=== PATIENT | female | born 1940 | race Caucasian/White ===

== ENCOUNTER 2021-08-27 21:14 | Inpatient (IN) | payer SELFPAY ==
[2021-08-27] MEDS ORDERED: SODIUM CHLORIDE 0.9% 1,000 ML IV STA (21:27)
[2021-08-27] MEDS ORDERED: SODIUM CHLORIDE 0.9% 500 ML 500 ML IV STA (21:27)
[2021-08-27] MEDS ORDERED: MORPHINE SULFATE 4 MG/ML SYRINGE IV STA (21:27)
--- NOTE | 2021-08-27 21:28 | ED ---
Fall HPI - General Stated Complaint: Fall, Hip Pain Time Seen by Provider: 08/27/21 21:22 Source: RN notes reviewed, old records reviewed, Caregiver Mode of arrival: EMS Limitations: no limitations - History of Present Illness Initial Comments: This is an 80-year-old female to the ER for evaluation. Patient is from [place] here visiting family. Patient presents today for evaluation of fall fall with right hip pain. Patient was unable to get up unable to get up stand or walk. Patient has no other complaints or injury aside from right hip pain. Did not hit her head no loss of consciousness fall was mechanical in nature. No blood thinners. No other significant medical history. MD Complaint: fall -: minutes(s) Fall From: standing When Fall Occurred: 1 hour [employer] Fall Witnessed: yes, by family Place Fall Occurred: home Loss of Consciousness: none Prolonged Down Time?: no Symptoms Prior to Fall: none Location - Extremities: Right: Thigh Severity: severe Severity scale (1-10): 10 Quality: sharp Context: tripped/slipped Associated Symptoms: denies - Related Data Home Medications Medication Instructions Recorded Confirmed Ascorbic Acid [Vitamin C] 500 mg PO DAILY 08/27/21 08/27/21 Calcium Carbonate [Calcium] 600 mg PO DAILY 08/27/21 08/27/21 Cholecalciferol [Vitamin D3 (25 25 mcg PO DAILY 08/27/21 08/27/21 Mcg = 1000 Iu)] Escitalopram Unknown Dose 1 tab PO HS 08/27/21 08/27/21 Levothyroxine Sodium [Synthroid] 62.5 mcg PO HS 08/27/21 08/27/21 Allergies Allergy/AdvReac Type Severity Reaction Status Date / Time No Known Allergies Allergy Verified 08/27/21 22:13 Review of Systems ROS Statement: Those systems with pertinent positive or pertinent negative responses have been documented in the HPI. ROS Other: All systems not noted in ROS Statement are negative. 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 Absent: scleral icterus, conjunctival injection, periorbital swelling ENT exam: Present: normal exam, mucous membranes moist Neck exam: Present: normal inspection. Absent: tenderness, meningismus, lymphadenopathy Respiratory exam: Present: normal lung sounds bilaterally. Absent: respiratory distress, wheezes, rales, rhonchi, stridor Cardiovascular Exam: Present: regular rate, normal rhythm, normal heart sounds. Absent: systolic murmur, diastolic murmur, rubs, gallop, clicks GI/Abdominal exam: Present: soft, normal bowel sounds. Absent: distended, tenderness, guarding, rebound, rigid Extremities exam: Present: normal inspection, full ROM, normal capillary refill. Absent: tenderness, pedal edema, joint swelling, calf tenderness Back exam: Present: normal inspection Neurological exam: Present: alert, oriented X3, CN II-XII intact Psychiatric exam: Present: normal affect, normal mood Skin exam: Present: warm, dry, intact, normal color. Absent: rash Course Vital Signs 08/27/21 08/27/21 21:26 22:09 Temperature 98.2 F Pulse Rate 84 82 Respiratory 28 H 16 Rate Blood Pressure 135/62 129/68 O2 Sat by Pulse 96 97 Oximetry - Reevaluation(s) Reevaluation #1: 08/27/21 22:11 Medical record is reviewed Reevaluation #2: 08/27/21 22:11 Patient has adequate current pain controlled Reevaluation #3: 08/27/21 22:11 Patient informed of results and questions answered - Consultations Consultation #1: Spoke with orthopedics on-call who agreed to admit the patient Medical Decision Making - Medical Decision Making 80-year-old female DF for evaluation with severe right hip pain. 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 Patient will be admitted for orthopedic evaluation management - Lab Data Result diagrams: 08/27/21 21:37 08/27/21 21:37 Lab Results 08/27/21 08/27/21 08/27/21 Range/Units 21:37 21:37 21:37 WBC 7.8 (3.8-10.6) k/uL RBC 3.90 (3.80-5.40) m/uL Hgb 12.1 (11.4-16.0) gm/dL Hct 37.0 (34.0-46.0) % MCV 94.8 (80.0-100.0) fL MCH 30.9 (25.0-35.0) pg MCHC 32.6 (31.0-37.0) g/dL RDW 13.8 (11.5-15.5) % Plt Count 192 (150-450) k/uL MPV 7.5 Neutrophils % 75 % Lymphocytes % 17 % Monocytes % 5 % Eosinophils % 1 % Basophils % 0 % Neutrophils # 5.9 (1.3-7.7) k/uL Lymphocytes # 1.3 (1.0-4.8) k/uL Monocytes # 0.4 (0-1.0) k/uL Eosinophils # 0.1 (0-0.7) k/uL Basophils # 0.0 (0-0.2) k/uL PT 10.9 (9.0-12.0) sec INR 1.0 (<1.2) APTT 22.1 (22.0-30.0) sec Sodium 136 L (137-145) mmol/L Potassium 4.2 (3.5-5.1) mmol/L Chloride 107 (98-107) mmol/L Carbon Dioxide 22 (22-30) mmol/L Anion Gap 7 mmol/L BUN 19 H (7-17) mg/dL Creatinine 0.91 (0.52-1.04) mg/dL Est GFR (CKD-EPI)AfAm 68 (>60 ml/min/1.73 sqM) Est GFR (CKD-EPI)NonAf 59 (>60 ml/min/1.73 sqM) Glucose 131 H (74-99) mg/dL Plasma Lactic Acid Siddhartha (0.7-2.0) mmol/L Calcium 8.5 (8.4-10.2) mg/dL Phosphorus 3.2 (2.5-4.5) mg/dL Magnesium 1.9 (1.6-2.3) mg/dL Total Bilirubin 1.0 (0.2-1.3) mg/dL AST 24 (14-36) U/L ALT 14 (4-34) U/L Alkaline Phosphatase 55 (38-126) U/L Troponin I (0.000-0.034) ng/mL Total Protein 6.5 (6.3-8.2) g/dL Albumin 3.6 (3.5-5.0) g/dL 08/27/21 08/27/21 Range/Units 21:37 21:37 WBC (3.8-10.6) k/uL RBC (3.80-5.40) m/uL Hgb (11.4-16.0) gm/dL Hct (34.0-46.0) % MCV (80.0-100.0) fL MCH (25.0-35.0) pg MCHC (31.0-37.0) g/dL RDW (11.5-15.5) % Plt Count (150-450) k/uL MPV Neutrophils % % Lymphocytes % % Monocytes % % Eosinophils % % Basophils % % Neutrophils # (1.3-7.7) k/uL Lymphocytes # (1.0-4.8) k/uL Monocytes # (0-1.0) k/uL Eosinophils # (0-0.7) k/uL Basophils # (0-0.2) k/uL PT (9.0-12.0) sec INR (<1.2) APTT (22.0-30.0) sec Sodium (137-145) mmol/L Potassium (3.5-5.1) mmol/L Chloride (98-107) mmol/L Carbon Dioxide (22-30) mmol/L Anion Gap mmol/L BUN (7-17) mg/dL Creatinine (0.52-1.04) mg/dL Est GFR (CKD-EPI)AfAm (>60 ml/min/1.73 sqM) Est GFR (CKD-EPI)NonAf (>60 ml/min/1.73 sqM) Glucose (74-99) mg/dL Plasma Lactic Acid Siddhartha 2.7 H* (0.7-2.0) mmol/L Calcium (8.4-10.2) mg/dL Phosphorus (2.5-4.5) mg/dL Magnesium (1.6-2.3) mg/dL Total Bilirubin (0.2-1.3) mg/dL AST (14-36) U/L ALT (4-34) U/L Alkaline Phosphatase (38-126) U/L Troponin I <0.012 (0.000-0.034) ng/mL Total Protein (6.3-8.2) g/dL Albumin (3.5-5.0) g/dL - EKG Data -: EKG Interpreted by Me (EKG is sinus rhythm 84 SC 178 QRS 85 QTC 398) - Radiology Data Radiology results: report reviewed (Chest x-rays negative for acute disease and a x-ray right hip is positive for fracture), image reviewed Disposition Clinical Impression: Fall, Closed right hip fracture Disposition: ADMITTED IP TO THIS [facility] Condition: Good Is patient prescribed a controlled substance at d/c from ED?: No Referrals: Nonstaff,Physician [Primary Care Provider] - 1-2 days
[2021-08-27 21:46] LABS: Basophils % (A) 0 %; Eosinophils # (A) 0.1 k/uL (0-0.7); Eosinophils % (A) 1 %; HGB 12.1 gm/dL (11.4-16.0); Lymphocytes # (A) 1.3 k/uL (1.0-4.8); Lymphocytes % (A) 17 %; MCH 30.9 pg (25.0-35.0); MCHC 32.6 g/dL (31.0-37.0); MCV 94.8 fL (80.0-100.0); Mean Platelet Volume 7.5; Monocytes # (A) 0.4 k/uL (0-1.0); Monocytes % (A) 5 %; Neutrophils # (A) 5.9 k/uL (1.3-7.7); Neutrophils % (A) 75 %; Platelet Count 192 k/uL (150-450); RDW 13.8 % (11.5-15.5); WBC 7.8 k/uL (3.8-10.6)
--- NOTE | 2021-08-27 21:54 | XR ---
EXAMINATION TYPE: XR Hip RT and AP Pelvis DATE OF EXAM: 08/27/2021 9:51 PM INDICATION: Patient age:Female; 80 years old; Reason for study: fall; PHH. COMPARISON: None. TECHNIQUE: The right hip was examined in the frontal and lateral projections and a AP pelvis. FINDINGS: There is an acute fracture of the right femoral neck with shortening. There is varus deform ity of the right hip. Stool seen within the rectum. The left femur and remainder of the osseous struc tures appear intact. Osteophyte formation of the hips with joint space narrowing. IMPRESSION: 1. Acute right femoral neck fracture with shortening and varus deformity. 2. Moderate osteoarthrosis changes of the hips.
[2021-08-27 21:56] LABS: Albumin 3.6 g/dL (3.5-5.0); Calcium 8.5 mg/dL (8.4-10.2); Magnesium 1.9 mg/dL (1.6-2.3); Phosphorus 3.2 mg/dL (2.5-4.5); Potassium 4.2 mmol/L (3.5-5.1); Total Protein 6.5 g/dL (6.3-8.2)
--- NOTE | 2021-08-27 21:56 | XR ---
EXAMINATION TYPE: XR chest 1V DATE OF EXAM: 08/27/2021 9:51 PM COMPARISON: None TECHNIQUE: XR chest 1V Frontal view of the chest. CLINICAL INDICATION:Female, 80 years old with history of fall; FINDINGS: Lungs/Pleura: Streaky atelectasis changes are seen throughout the lungs with cavitary like lesion see n within the right upper lobe measuring up to 2.8 x 1.7 cm. Interstitial opacities are seen within th e right lung. Pulmonary vascularity: Unremarkable. Heart/mediastinum: Cardiomediastinal silhouette is unremarkable. Musculoskeletal: No acute osseous pathology. IMPRESSION: Right upper lobe cavitary lesion with associated predominantly right-sided interstitial opacities. In fectious and neoplastic processes remain in the differential. Consider further workup with CT of the chest.
[2021-08-27 22:05] LABS: Partial Thromboplastin Time 22.1 sec (22.0-30.0); Prothrombin Time 10.9 sec (9.0-12.0)
[2021-08-27] MEDS ORDERED: LORazepam 2 MG/ML INJ IV PRN (22:24)
[2021-08-27] MEDS ORDERED: NALOXONE 0.4 MG/ML 1 ML VIAL IV PRN (22:24)
[2021-08-27] MEDS ORDERED: ONDANSETRON 4 MG/2 ML VIAL IVP PRN (22:24)
[2021-08-27] MEDS: SODIUM CHLORIDE 0.9% 1,000 ML IV SCH (23:29)
[2021-08-28 00:06] LABS: Appearance,Urine Cloudy (Clear); Bacteria,Urine Many /hpf; Bilirubin,Urine Negative (Negative); Blood,Urine Negative (Negative); Color,Urine Yellow; Glucose,Urine (UA) Negative (Negative); Hyaline Casts,Urine 2 /lpf (0-2); Ketones,Urine 1+ (Negative); Leukocyte Esterase,Urine Small (Negative); Mucus,Urine Moderate /hpf; Nitrite,Urine Positive (Negative); PH, Urine 5.5 (5.0-8.0); Protein,Urine Trace (Negative); RBC,Urine 16 /hpf (0-5); Specific Gravity,Urine 1.023 (1.001-1.035); Squamous Epithelial Cell,Urine 30 /hpf (0-4); Urobilinogen,Urine <2.0 mg/dL (<2.0); WBC,Urine 28 /hpf (0-5)
[2021-08-28] MEDS: MORPHINE SULFATE 4 MG/ML SYRINGE IV PRN ×4 (01:03→23:09)
--- NOTE | 2021-08-28 02:35 | P.CONS ---
History of Present Illness - Reason for Consult Consult date: 08/28/21 - History of Present Illness The patient is an 80-year-old female with a PMH of dementia, hypothyroidism, osteoporosis, and depression who was brought into the emergency room after a fall. History obtained from the son-in-law via telephone as patient is a poor historian due to underlying history of dementia. As per the son-in-law, the patient is visiting from [place] and tripped on their dog earlier tonight, fall on the ground on her right side at around 9 PM. He reports witnessing the episode with no loss of consciousness reported. No head trauma was reported by family. The patient was unable to stand up following the episode, at which time EMS was activated. The son-in-law notes that the patient is normally very active and does not use any assistive devices. There were reportedly raking leaves in the backyard all evening today. There were no reports of exertional chest discomfort or shortness of breath and the patient is able to climb stairs without difficulty. The patient lives with her in [place] and is fully independent in all ADLs, despite gradually worsening Alzheimer's dementia. Son- in-law reports that the patient is often not able to remember where she is. No prior history of fractures. At the time of interview, the patient reported right hip discomfort, unable to quantify. She denied any additional complaints. She denied experiencing chest discomfort, shortness of breath, fever, chills, cough, nausea, vomiting, abdominal, diarrhea. Pelvis x-ray in the emergency room revealed an acute right femoral neck fracture with moderate osteoarthritis of the hips. EKG revealed sinus rhythm at [address] depression noted in leads V4 to V6. No prior EKGs available for comparison. Chest x-ray revealed a right upper lobe cavitary lesion with a right-sided interstitial opacities, with infectious versus neoplastic process within the differential. Laboratory evaluation revealed lactic acid 2.7, and an abnormal UA with troponin less than 0.012. Review of systems: Pertinent positives and negatives as discussed in HPI, a complete review of systems was performed and all other systems are negative. Physical examination: General: non toxic, no distress, appears at stated age, normal weight Derm: no unusual rashes/lesions no unusual ecchymoses, warm, dry Head: atraumatic, normocephalic, symmetric Eyes: EOMI, no lid lag, anicteric sclera, pupils equal round reactive to light ENT: Nose and ears atraumatic, no thrush, no pharyngeal erythema Neck: No thyromegaly, no cervical lymphadenopathy, trachea midline, supple Mouth: no lip lesion, mucus membranes moist Cardiovascular: S1S2 reg, no murmur, positive posterior tibial pulse bilateral, no edema, capillary refill less than 2 seconds Lungs: CTA bilateral, no rhonchi, no rales , no accessory muscle use Abdominal: soft, nontender to palpation, no guarding, no appreciable organomegaly, normal bowel sounds Ext: no gross muscle atrophy, muscle strength 5 out of 5 in all extremities except right lower extremity due to pain, right hip pain elicited with passive ROM, no contractures Neuro: CN II-XI grossly intact, light touch intact all 4 extremities, finger to nose within normal limits, Psych: Alert, oriented only to self, not oriented to place or time Assessment/plan Right upper lobe lung cavitary lesion with opacities -Obtain CT chest -Patient denying fever, cough, chest pain, shortness of breath Abnormal EKG -Consult cardiology for preoperative clearance Acute traumatic right hip fracture -Defer management including pain control to the primary surgery service Chronic conditions: Hypothyroidism -Continue with home meds Lactic acidosis -IV fluids -Monitor for resolution We appreciate this opportunity to be involved in this patient's care. We will follow the patient with you. For any further questions, please not hesitate to contact the sound inpatient team. Past Medical History Smoking Status: Never smoker Past Alcohol Use History: None Reported Past Drug Use History: None Reported - Past Family History Father Family Medical History: Unable to Obtain Additional Family Medical History / Comment(s): patient only oriented to self, unable to obtain history Medications and Allergies Home Medications Medication Instructions Recorded Confirmed Type Ascorbic Acid [Vitamin C] 500 mg PO DAILY 08/27/21 08/27/21 History Calcium Carbonate [Calcium] 600 mg PO DAILY 08/27/21 08/27/21 History Cholecalciferol [Vitamin D3 (25 25 mcg PO DAILY 08/27/21 08/27/21 History Mcg = 1000 Iu)] Escitalopram Unknown Dose 1 tab PO HS 08/27/21 08/27/21 History Levothyroxine Sodium [Synthroid] 62.5 mcg PO HS 08/27/21 08/27/21 History Allergies Allergy/AdvReac Type Severity Reaction Status Date / Time No Known Allergies Allergy Verified 08/27/21 22:13 Physical Exam Vitals: Vital Signs Temp Pulse Resp BP Pulse Ox 08/28/21 01:00 18 08/27/21 23:36 98.1 F 87 18 127/78 98 08/27/21 22:09 82 16 129/68 97 08/27/21 21:26 98.2 F 84 28 H 135/62 96 Intake and Output 08/27/21 08/27/21 08/28/21 14:59 22:59 06:59 Other: Voiding Method Indwelling Catheter Weight 60.1 kg Results CBC & Chem 7: 08/27/21 21:37 08/27/21 21:37 Labs: Abnormal Lab Results - Last 24 Hours (Table) 08/27/21 08/27/21 08/27/21 Range/Units 21:37 21:37 23:03 Sodium 136 L (137-145) mmol/L BUN 19 H (7-17) mg/dL Glucose 131 H (74-99) mg/dL Plasma Lactic Acid Siddhartha 2.7 H* (0.7-2.0) mmol/L Urine Appearance Cloudy H (Clear) Urine Protein Trace H (Negative) Urine Ketones 1+ H (Negative) Urine Nitrite Positive H (Negative) Ur Leukocyte Esterase Small H (Negative) Urine RBC 16 H (0-5) /hpf Urine WBC 28 H (0-5) /hpf Ur Squamous Epith Cells 30 H (0-4) /hpf Urine Bacteria Many H (None) /hpf Urine Mucus Moderate H (None) /hpf
[2021-08-28] MEDS ORDERED: RX INFO: IV CONTRAST WAS GIVEN 1 EACH MISC MISCELLANE PRN (02:36)
[2021-08-28 05:12] LABS: Basophils % (A) 0 %; Eosinophils % (A) 0 %; HCT 36.7 % (34.0-46.0); HGB 11.7 gm/dL (11.4-16.0); Lymphocytes # (A) 0.7 k/uL (1.0-4.8); Lymphocytes % (A) 7 %; MCH 30.5 pg (25.0-35.0); MCHC 31.8 g/dL (31.0-37.0); MCV 95.8 fL (80.0-100.0); Mean Platelet Volume 7.4; Monocytes # (A) 0.3 k/uL (0-1.0); Monocytes % (A) 3 %; Neutrophils % (A) 89 %; Platelet Count 164 k/uL (150-450); RBC 3.83 m/uL (3.80-5.40); RDW 13.4 % (11.5-15.5); WBC 10.1 k/uL (3.8-10.6)
[2021-08-28 05:26] LABS: Albumin 3.5 g/dL (3.5-5.0); Potassium 4.3 mmol/L (3.5-5.1); Total Bilirubin 1.5 mg/dL (0.2-1.3); Total Protein 6.2 g/dL (6.3-8.2)
[2021-08-28] MEDS: SODIUM CHLORIDE 0.9% 1,000 ML IV SCH ×3 (06:47→22:58)
[2021-08-28] MEDS: PANTOPRAZOLE 40 MG/10 ML VIAL IV SCH (07:36)
--- NOTE | 2021-08-28 07:47 | P.HPOR ---
History of Present Illness H&P Date: 08/28/21 The patient is a very pleasant 80-year-old female who sustained a ground-level fall yesterday when she tripped over her dog. She is visiting from [place]. She had immediate pain and an inability to ambulate and was brought to the emergency department where x-rays showed a displaced femoral neck fracture. She was admitted under my care. This morning she is complaining of isolated right hip pain. There is limited ability to obtain history from her given her Alzheimer's dementia. Past Medical History Smoking Status: Never smoker Past Alcohol Use History: None Reported Past Drug Use History: None Reported - Past Family History Father Family Medical History: Unable to Obtain Additional Family Medical History / Comment(s): patient only oriented to self, unable to obtain history Medications and Allergies Home Medications Medication Instructions Recorded Confirmed Type Ascorbic Acid [Vitamin C] 500 mg PO DAILY 08/27/21 08/27/21 History Calcium Carbonate [Calcium] 600 mg PO DAILY 08/27/21 08/27/21 History Cholecalciferol [Vitamin D3 (25 25 mcg PO DAILY 08/27/21 08/27/21 History Mcg = 1000 Iu)] Escitalopram Unknown Dose 1 tab PO HS 08/27/21 08/27/21 History Levothyroxine Sodium [Synthroid] 62.5 mcg PO HS 08/27/21 08/27/21 History Allergies Allergy/AdvReac Type Severity Reaction Status Date / Time No Known Allergies Allergy Verified 08/27/21 22:13 Physical Examination The patient is resting comfortably in bed and is in no apparent distress. She is alert and able to answer questions, but is somewhat confused and has a baseline of dementia. Her head is normocephalic and atraumatic. She answers nonlabored breathing with symmetric chest expansion. Her abdomen is nonobese and nontender. Examination of both upper extremities reveal no obvious deformities and no tenderness to palpation. Left lower extremities without deformity and is nontender. A focused exam of the right lower extremity was conducted. On inspection the limited shortened and externally rotated. There are no overlying skin lesions or scars. There is pain with any attempted range of motion of the hip. There is no tenderness to the thigh, knee, tibia, or ankle. She is able to actively plantarflex and dorsiflex her ankle and her toes. She has a palpable dorsalis pedis pulse. Results X-rays of the pelvis and right hip show displaced subcapital femoral neck fracture - Labs Labs: Abnormal Lab Results - Last 24 Hours (Table) 08/27/21 08/27/21 08/27/21 Range/Units 21:37 21:37 23:03 Neutrophils # (1.3-7.7) k/uL Lymphocytes # (1.0-4.8) k/uL Sodium 136 L (137-145) mmol/L BUN 19 H (7-17) mg/dL Glucose 131 H (74-99) mg/dL Plasma Lactic Acid Siddhartha 2.7 H* (0.7-2.0) mmol/L Calcium (8.4-10.2) mg/dL Total Bilirubin (0.2-1.3) mg/dL Total Protein (6.3-8.2) g/dL Urine Appearance Cloudy H (Clear) Urine Protein Trace H (Negative) Urine Ketones 1+ H (Negative) Urine Nitrite Positive H (Negative) Ur Leukocyte Esterase Small H (Negative) Urine RBC 16 H (0-5) /hpf Urine WBC 28 H (0-5) /hpf Ur Squamous Epith Cells 30 H (0-4) /hpf Urine Bacteria Many H (None) /hpf Urine Mucus Moderate H (None) /hpf 08/28/21 08/28/21 Range/Units 04:30 04:30 Neutrophils # 9.0 H (1.3-7.7) k/uL Lymphocytes # 0.7 L (1.0-4.8) k/uL Sodium 133 L (137-145) mmol/L BUN (7-17) mg/dL Glucose 131 H (74-99) mg/dL Plasma Lactic Acid Siddhartha (0.7-2.0) mmol/L Calcium 8.0 L (8.4-10.2) mg/dL Total Bilirubin 1.5 H (0.2-1.3) mg/dL Total Protein 6.2 L (6.3-8.2) g/dL Urine Appearance (Clear) Urine Protein (Negative) Urine Ketones (Negative) Urine Nitrite (Negative) Ur Leukocyte Esterase (Negative) Urine RBC (0-5) /hpf Urine WBC (0-5) /hpf Ur Squamous Epith Cells (0-4) /hpf Urine Bacteria (None) /hpf Urine Mucus (None) /hpf H & H 08/27/21 08/28/21 Range/Units 21:37 04:30 Hgb 12.1 11.7 (11.4-16.0) gm/dL Hct 37.0 36.7 (34.0-46.0) % Coagulation 08/27/21 Range/Units 21:37 INR 1.0 (<1.2) Result Diagrams: 08/28/21 04:30 08/28/21 04:30 Assessment and Plan Assessment: Displaced right subcapital femoral neck fracture Alzheimer's dementia Plan: The patient will need operative fixation of her right hip fracture with a cemented hemiarthroplasty. She has not been cleared by internal medicine and they've requested a computed tomography scan of her chest to further evaluateat the scene on her chest x-ray and a cardiology consult. We will plan on surgery tomorrow morning if she is cleared. She is remain strictly nonweightbearing on her right leg and should remain bedrest. Time with Patient: Greater than 30
--- NOTE | 2021-08-28 10:47 | P.PN ---
Subjective Progress Note Date: 08/28/21 Principal diagnosis: Femoral neck fracture of the right hip Patient was seen and examined. No acute events overnight. Patient reports well-controlled pain in her right hip. She is pleasantly confused. Case discussed with nursing, family aware of right upper lobe cavitary lesion and get regular CT surveillance in [place]. Objective - Vital Signs Vital signs: Vital Signs Temp 98.7 F 08/28/21 07:45 Pulse 88 08/28/21 07:45 Resp 16 08/28/21 07:45 BP 109/58 08/28/21 07:45 Pulse Ox 91 L 08/28/21 07:45 Intake & Output 08/27/21 08/28/21 08/28/21 18:59 06:59 18:59 Output Total 200 Balance -200 Weight 60.1 kg Output: Urine 200 Other: Voiding Method Indwelling Catheter Indwelling Catheter - Exam General: [non toxic], [no distress], [appears at stated age] Derm: [warm], [dry] Head: [atraumatic], [normocephalic], [symmetric] Eyes: [EOMI], [no lid lag], [anicteric sclera] Mouth: [no lip lesion], [mucus membranes moist] Cardiovascular: [S1S2 reg], [no murmur], [positive posterior tibial pulse bilateral], Lungs: [CTA bilateral], [no rhonchi, no rales] , [no accessory muscle use] Ext: [no gross muscle atrophy], [no edema], [limited range of motion of the right hip due to pain] Neuro: [no focal neuro deficits] Psych: [Alert and oriented x 1-2] - Labs CBC & Chem 7: 08/28/21 04:30 08/28/21 04:30 Labs: Abnormal Lab Results - Last 24 Hours (Table) 08/27/21 08/27/21 08/27/21 Range/Units 21:37 21:37 23:03 Neutrophils # (1.3-7.7) k/uL Lymphocytes # (1.0-4.8) k/uL Sodium 136 L (137-145) mmol/L BUN 19 H (7-17) mg/dL Glucose 131 H (74-99) mg/dL Plasma Lactic Acid Siddhartha 2.7 H* (0.7-2.0) mmol/L Calcium (8.4-10.2) mg/dL Total Bilirubin (0.2-1.3) mg/dL Total Protein (6.3-8.2) g/dL Urine Appearance Cloudy H (Clear) Urine Protein Trace H (Negative) Urine Ketones 1+ H (Negative) Urine Nitrite Positive H (Negative) Ur Leukocyte Esterase Small H (Negative) Urine RBC 16 H (0-5) /hpf Urine WBC 28 H (0-5) /hpf Ur Squamous Epith Cells 30 H (0-4) /hpf Urine Bacteria Many H (None) /hpf Urine Mucus Moderate H (None) /hpf 08/28/21 08/28/21 Range/Units 04:30 04:30 Neutrophils # 9.0 H (1.3-7.7) k/uL Lymphocytes # 0.7 L (1.0-4.8) k/uL Sodium 133 L (137-145) mmol/L BUN (7-17) mg/dL Glucose 131 H (74-99) mg/dL Plasma Lactic Acid Siddhartha (0.7-2.0) mmol/L Calcium 8.0 L (8.4-10.2) mg/dL Total Bilirubin 1.5 H (0.2-1.3) mg/dL Total Protein 6.2 L (6.3-8.2) g/dL Urine Appearance (Clear) Urine Protein (Negative) Urine Ketones (Negative) Urine Nitrite (Negative) Ur Leukocyte Esterase (Negative) Urine RBC (0-5) /hpf Urine WBC (0-5) /hpf Ur Squamous Epith Cells (0-4) /hpf Urine Bacteria (None) /hpf Urine Mucus (None) /hpf Assessment and Plan Assessment: Right upper lobe lung cavitary lesion with opacities -CT chest cancelled -As per nursing, patient's family aware of right upper lobe cavitary lesion and undergoes regular surveillance in [place] -Patient denying fever, cough, chest pain, shortness of breath UTI -Started on Rocephin IV on 08/28 -Follow Urine culture Hyponatremia -Likely due to dehydration -Continue IV hydration -Repeat BMP tomorrow morning. Abnormal EKG -Consult cardiology for preoperative clearance -Echocardiogram ordered Acute traumatic right hip fracture -Defer management including pain control to the primary surgery service -Plans for OR tomorrow Chronic conditions: Hypothyroidism -Continue with home meds Resolved: Lactic acidosis
--- NOTE | 2021-08-28 11:36 | P.CRDCN ---
History of Present Illness Consult date: 08/28/21 Chief complaint: Reason for the consult abnormal EKG History of present illness: The patient is an 80-year-old female patient with no significant cardiovascular history and no history of coronary artery disease or congestive heart failure or any cardiac arrhythmia and never seen by a education diagnostician in the past. We requested to see the patient for a preoperative cardiac assessment before noncardiac surgery. The patient somewhat is a poor historian and the history was taken from her family who where her bedside. Apparently the patient fell at home and she landed on the right side in the morning. She developed right hip fracture and currently she is in process of having surgery. Orthopedic service is on the case. We consulted to see the patient mainly because of an EKG was performed and showed sinus rhythm with significant baseline artifact and possible diffuse nonspecific ST and T wave abnormalities. Apparently the patient is very active physically and she has not been experiencing any symptoms of any chest pain or chest discomfort or any shortness of breath or dizziness or lightheadedness and no feeling of heart racing or fluttering or presyncope or syncope. According to her family she is able to go 2 flights of stairs without being symptomatic. No history of coronary artery disease. No history of heart failure nor history of cardiac arrhythmia. When she was seen this morning she is in process of having an echocardiogram for further risk stratification which we will follow-up on. Hemodynamically she remains a stable. When she was examined she was not having any unstable angina or any cardiac arrhythmia and s he was not in any overt congestive heart failure. Past Medical History Past Medical History: Dementia, Thyroid Disorder History of Any Multi-Drug Resistant Organisms: None Reported Smoking Status: Never smoker Past Alcohol Use History: None Reported Past Drug Use History: None Reported - Past Family History Father Family Medical History: Unable to Obtain Additional Family Medical History / Comment(s): patient only oriented to self, unable to obtain history Medications and Allergies Home Medications Medication Instructions Recorded Confirmed Type Ascorbic Acid [Vitamin C] 500 mg PO DAILY 08/27/21 08/27/21 History Calcium Carbonate [Calcium] 600 mg PO DAILY 08/27/21 08/27/21 History Cholecalciferol [Vitamin D3 (25 25 mcg PO DAILY 08/27/21 08/27/21 History Mcg = 1000 Iu)] Escitalopram Unknown Dose 1 tab PO HS 08/27/21 08/27/21 History Levothyroxine Sodium [Synthroid] 62.5 mcg PO HS 08/27/21 08/27/21 History Allergies Allergy/AdvReac Type Severity Reaction Status Date / Time No Known Allergies Allergy Verified 08/27/21 22:13 Physical Exam Vitals: Vital Signs Temp Pulse Pulse Resp BP BP Pulse Ox 08/28/21 07:45 98.7 F 88 16 109/58 91 L 08/28/21 07:36 88 16 08/28/21 02:10 98.5 F 90 18 143/73 94 L 08/28/21 01:00 18 08/27/21 23:36 98.1 F 87 18 127/78 98 08/27/21 22:09 82 16 129/68 97 08/27/21 21:26 98.2 F 84 28 H 135/62 96 Intake and Output 08/27/21 08/28/21 08/28/21 22:59 06:59 14:59 Output Total 200 Balance -200 Output: Urine 200 Other: Voiding Method Indwelling Catheter Indwelling Catheter Weight 60.1 kg - Constitutional General appearance: no acute distress - Respiratory Respiratory: bilateral: diminished - Cardiovascular Rhythm: regular Heart sounds: normal: S1, S2 Abnormal Heart Sounds: systolic murmur Results 08/28/21 04:30 08/28/21 04:30 Cardiac Enzymes 08/27/21 08/27/21 08/28/21 Range/Units 21:37 21:37 04:30 AST 24 25 (14-36) U/L Troponin I <0.012 (0.000-0.034) ng/mL Coagulation 08/27/21 Range/Units 21:37 PT 10.9 (9.0-12.0) sec APTT 22.1 (22.0-30.0) sec CBC 08/27/21 08/28/21 Range/Units 21:37 04:30 WBC 7.8 10.1 (3.8-10.6) k/uL RBC 3.90 3.83 (3.80-5.40) m/uL Hgb 12.1 11.7 (11.4-16.0) gm/dL Hct 37.0 36.7 (34.0-46.0) % Plt Count 192 164 (150-450) k/uL Comprehensive Metabolic Panel 08/27/21 08/28/21 Range/Units 21:37 04:30 Sodium 136 L 133 L (137-145) mmol/L Potassium 4.2 4.3 (3.5-5.1) mmol/L Chloride 107 105 (98-107) mmol/L Carbon Dioxide 22 23 (22-30) mmol/L BUN 19 H 17 (7-17) mg/dL Creatinine 0.91 0.79 (0.52-1.04) mg/dL Glucose 131 H 131 H (74-99) mg/dL Calcium 8.5 8.0 L (8.4-10.2) mg/dL AST 24 25 (14-36) U/L ALT 14 15 (4-34) U/L Alkaline Phosphatase 55 43 (38-126) U/L Total Protein 6.5 6.2 L (6.3-8.2) g/dL Albumin 3.6 3.5 (3.5-5.0) g/dL Current Medications Generic Name Dose Route Start Last Admin Trade Name Freq PRN Reason Stop Dose Admin Sodium Chloride 1,000 mls @ 130 mls/hr 08/27/21 22:30 08/28/21 06:47 Saline 0.9% IV 130 mls/hr .Q7H42M CIRO Administration Ceftriaxone Sodium 1 gm/ 50 mls @ 100 mls/hr 08/28/21 10:45 08/28/21 11:17 Sodium Chloride IVPB 100 mls/hr Q24HR CIRO Administration Protocol Lorazepam 0.5 mg 08/27/21 22:24 Lorazepam 2 Mg/Ml Inj IV Q6HR PRN Anxiety Miscellaneous Information 1 each 08/28/21 02:36 Rx Info: Iv Contrast Was Given 1 Each Misc MISCELLANE 08/30/21 02:36 DAILY PRN Per Protocol Morphine Sulfate 4 mg 08/27/21 22:24 08/28/21 05:51 Morphine Sulfate 4 Mg/Ml Syringe IV 4 mg Q4HR PRN Administration Severe Pain Naloxone HCl 0.2 mg 08/27/21 22:24 Naloxone 0.4 Mg/Ml 1 Ml Vial IV Q2M PRN Opioid Reversal Ondansetron HCl 4 mg 08/27/21 22:24 Ondansetron 4 Mg/2 Ml Vial IVP Q8HR PRN Nausea And Vomiting Pantoprazole Sodium 40 mg 08/28/21 09:00 08/28/21 07:36 Pantoprazole 40 Mg/10 Ml Vial IV 40 mg DAILY CIRO Administration Intake and Output 08/27/21 08/28/21 08/28/21 22:59 06:59 14:59 Output Total 200 Balance -200 Output: Urine 200 Other: Voiding Method Indwelling Catheter Indwelling Catheter Weight 60.1 kg 08/28/21 04:30 08/28/21 04:30 Assessment and Plan Assessment: Assessment #1 status post fall with a right hip fracture #2 thyroid disorder #3 underlying dementia Plan #1 acute coronary event was ruled out #2 follow-up on the echocardiogram which was performed earlier #3 repeat the EKG to obtain a better quality EKG #4 further recommendation to follow
--- NOTE | 2021-08-28 15:19 | CA ---
Transthoracic Echo Report Name: Oanh Benitez Age: 80 Gender: F : 1940 Exam Date: 08/28/2021 10:23 Exam Location: [facility] Ht (in): 66 Wt (lb): 132 Ordering Physician: Hailey Denny MD Attending/Referring Phys: Hospitality Recruiter Kassie Goodwin, ANTIONETTE Procedure CPT: Indications: abnormal echo, cardio clearance for surgery Cardiac Hx: Technical Quality: Fair Contrast 1: Total Dose (mL): Contrast 2: Total Dose (mL): MEASUREMENTS (Male / Female) Normal Values 2D ECHO LV Diastolic Diameter PLAX 4.1 cm 4.2 - 5.9 / 3.9 - 5.3 cm LV Systolic Diameter PLAX 2.4 cm IVS Diastolic Thickness 1.0 cm 0.6 - 1.0 / 0.6 - 0.9 cm LVPW Diastolic Thickness 0.9 cm 0.6 - 1.0 / 0.6 - 0.9 cm LV Relative Wall Thickness 0.5 RV Internal Dim ED PLAX 2.4 cm LA Systolic Diameter LX 2.3 cm 3.0 - 4.0 / 2.7 - 3.8 cm M-MODE Aortic Root Diameter MM 3.5 cm MV E Point Septal Separation 0.6 cm AV Cusp Separation MM 2.0 cm DOPPLER AV Peak Velocity 125.0 cm/s AV Peak Gradient 6.2 mmHg MV Area PHT 4.6 cm??? Mitral E Point Velocity 80.4 cm/s Mitral A Point Velocity 99.3 cm/s Mitral E to A Ratio 0.8 MV Deceleration Time 166.3 ms TR Peak Velocity 300.9 cm/s TR Peak Gradient 36.2 mmHg Right Ventricular Systolic Press 40.5 mmHg FINDINGS Left Ventricle Left ventricular ejection fraction is estimated at 55-60 %. Borderline left ventricular hypertrophy. Left ventricular cavity size normal. No obvious regional wall motion abnormalities. Right Ventricle Normal right ventricular size. Mild pulmonary hypertension. Right Atrium Normal right atrial size. Left Atrium Normal left atrial size. No evidence for an atrial septal defect. Mitral Valve Mitral valve thickened. Mitral annular calcification. Aortic Valve Trileaflet aortic valve. No aortic valve stenosis or regurgitation. Tricuspid Valve Mild tricuspid regurgitation. Pulmonic Valve Trace to mild pulmonic regurgitation. Pericardium No pericardial effusion. Aorta Normal size aortic root and proximal ascending aorta. CONCLUSIONS Normal LFEF. Previewed by: Dr. Kvng Rose MD (Electronically Signed) Final Date: 28 Aug 2021 15:18
[2021-08-28] MEDS: ESCITALOPRAM 10 MG TAB PO SCH ×2 (20:31→20:32)
[2021-08-28] MEDS: LEVOTHYROXINE 125 MCG TAB PO SCH (20:31)
[2021-08-28] MEDS ORDERED: ESCITALOPRAM PO SCH ×2 (21:00)
[2021-08-29] MEDS: SODIUM CHLORIDE 0.9% 1,000 ML IV SCH ×4 (06:15→21:15)
[2021-08-29] MEDS: CALCIUM CARB-VIT D 500 MG-5 MCG TAB PO SCH (06:52)
[2021-08-29] MEDS: ASCORBIC ACID 500 MG TAB PO SCH (06:52)
[2021-08-29] MEDS: CHOLECALCIFEROL 25 MCG (1000 IU) TABLET PO SCH (06:52)
[2021-08-29] MEDS ORDERED: IV FLUID CONTINUATION 1,000 ML IV ONE (07:11)
[2021-08-29] MEDS: PANTOPRAZOLE 40 MG/10 ML VIAL IV SCH (07:17)
[2021-08-29] MEDS ORDERED: TRANEXAMIC ACID IN NACL,ISO-OS 1,000 MG/100 ML BAG IRRIGATION ONE (07:58)
[2021-08-29] MEDS ORDERED: ONDANSETRON 4 MG/2 ML VIAL ONE (08:05)
[2021-08-29] MEDS ORDERED: PROPOFOL 10 MG/ML 20 ML VIAL IV ONE (08:05)
[2021-08-29] MEDS ORDERED: DEXAMETHASONE SOD PHOSPHATE 10 MG/ML 1 ML VIAL ONE (08:05)
[2021-08-29] MEDS ORDERED: KETOROLAC 15 MG/ML 1 ML VIAL ONE (08:05)
[2021-08-29] MEDS ORDERED: SUCCINYLCHOLINE CHLORIDE 100 MG/5 ML SYR IV ONE (08:05)
[2021-08-29] MEDS ORDERED: LIDOCAINE 2% INJ 20 MG/ML (2 ML VIAL) ONE (08:05)
[2021-08-29] MEDS ORDERED: fentaNYL (PF) 50 MCG/ML 2 ML AMP ONE (08:05)
[2021-08-29] MEDS ORDERED: TRANEXAMIC ACID IN NACL,ISO-OS 1,000 MG/100 ML BAG ONE (08:05)
[2021-08-29] MEDS ORDERED: ROCURONIUM 10 MG/ML (5 ML VIAL) IV ONE (08:05)
[2021-08-29] MEDS ORDERED: TRANEXAMIC ACID IN NACL,ISO-OS 1,000 MG in SALINE 1 100ML.BAG IVPB ONE ×2 (08:15→10:00)
[2021-08-29] MEDS ORDERED: SODIUM CHLORIDE 0.9% 100 ML with ceFAZolin 2,000 MG IV ONE ×2 (08:17)
[2021-08-29] MEDS ORDERED: EPINEPHrine 2 MG in SODIUM CHLORIDE 0.9% 200 ML IV ONE (09:21)
[2021-08-29] MEDS ORDERED: LACTATED RINGERS 1,000 ML IV ONE (09:57)
[2021-08-29] MEDS ORDERED: NALOXONE 0.4 MG/ML 1 ML VIAL IV PRN (10:30)
[2021-08-29] MEDS ORDERED: MAGNESIUM HYDROXIDE 2,400 MG/10 ML CUP PO PRN (10:30)
[2021-08-29] MEDS ORDERED: HYDROmorphone 0.5 MG/0.5 ML SYRINGE IVP PRN ×3 (10:30)
[2021-08-29] MEDS ORDERED: ONDANSETRON 4 MG/2 ML VIAL IVP PRN (10:30)
--- NOTE | 2021-08-29 10:37 | P.OP ---
Date of Procedure: 08/29/21 Preoperative Diagnosis: 1. Displaced right femoral neck fracture 2. Alzheimer's dementia Postoperative Diagnosis: Same Procedure(s) Performed: Right direct anterior hip hemiarthroplasty Implants: [place] accolade C size #4 standard offset femoral stem Bipolar femoral head 44 mm outer diameter, 28 mm inner diameter, +0 neck Anesthesia: RONIT Surgeon: Yuriy Villanueva Reheater Helper #1: Aicha Amaya Estimated Blood Loss (ml): 100 IV fluids (ml): 1,200 Pathology: other (femoral head to pathology) Condition: stable Disposition: PACU Indications for Procedure: I met with the patient and their family preoperatively to discuss their injury and treatment options. They have an intra-capsular, femoral hip fracture and my recommendation was to perform a cemented hemiarthroplasty given her history of dementia to facilitate early mobilization and reduce her risks from a total hip replacement, particularly dislocation. We discussed the potential risks and complications of this surgical procedure including but certainly not limited to risks from anesthesia, superficial infection, deep infection, dislocation, intraoperative fracture, postoperative fracture, damage to local blood vessels or nerves, limp, progression of hip arthritis, limb length discrepancy, symptomatic hardware, need for further surgery including conversion to total hip arthroplasty, DVT, PE, acute coronary event, pressure ulcers, urinary tract infection, failure to thrive, an inability to regain preinjury level of function, and possibly . The patient and their family understand these potential complications and also awknowledge that other less common complications are possible. They provided both their verbal and written consent to go forward with operative fixation of their hip fracture with cemented hip hemiarthroplasty. Operative Findings: Displaced subcapital femoral neck fracture with acute hemarthrosis Description of Procedure: The patient was identified in the preoperative holding area and the correct hip was marked with my initials. I reviewed the procedure and consent with the patient. All of their questions were answered. The patient was then brought back into the operating room by anesthesia. While on the [facility] anesthesia was administered by the anesthesia team. Preoperative antibiotics and tranexamic acid were also given. After the patient was under anesthesia I examined their ankles to determine their preoperative leg length discrepancy. The skin over the anterior aspect of the hip was shaved to remove hair over the site of planned incision. Both feet and ankles were padded with webril and boots for the [place] were applied. The patient was then carefully transferred onto the [place] table. A perineal post was immediately placed. The arms were placed on arm holders and were well-padded. Both boots were secured to the spars on the [place] table. The patient was positioned so that the pelvis was centered over the post. Nonsterile drapes were applied. A timeout was performed identifying the correct patient, operative extremity, and procedure. At this point fluoroscopy was brought in to take preoperative images of the pelvis and operative hip. Using the standing AP pelvis from the office as a template, a comparable image was obtained with fluoroscopy. A metallic bar was used to create a bi-ischial line for use as a reference to leg length adjustments during the procedure. Global offset was also measured on both the operative and nonoperative leg. Fluoroscopy was then brought out and a pre-scrub using a chlorhexidine scrub brush was performed. The operative limb was then prepped and draped in the standard sterile fashion. An anterior longitudinal incision was made lateral and distal to the ASIS. The skin and subcutaneous tissues were incised sharply. The underlying tensor fascia was identified and incised in its midportion. The fascia was dissected free from the underlying muscle and the muscle belly was retracted. A blunt tipped cobra retractor was placed over the superior neck under the muscle fibers of the gluteus minimus. The deep enveloping fascia of the tensor was incised. The anterior leash of vessels were then identified and cauterized. The fascia between the rectus and the capsule was then incised and the pre-capsular fat was excised. A second Cobra was placed inferior to the neck. The interval between the rectus and iliocapsularis and the hip capsule was developed and a retractor was placed carefully over the anterior rim of the acetabulum. A T-shaped anterior capsulotomy was performed. A hemarthrosis consistent with a femoral neck fracture was identified. The superior capsular leaflet was left in place in the inferior capsular flap was excised. The Cobra retractors were placed intracapsularly. A displaced femoral neck fracture was then identified. We then made a femoral neck osteotomy according to preoperative and intraoperative templating and confirmed the level of the osteotomy using fluoroscopic imaging. The femoral head was removed, passed off to the back table, and sized. The superior capsular flap was excised. On inspection of the acetabulum there were minimal degenerative changes with intact cartilage. Attention was then turned to the femur. The remnant dorsal lateral capsule was excised. The short external rotators were visible and protected. A bone hook was used to confirm appropriate translation of the trochanter away from the acetabulum. The leg was then extended and adducted and the bone hook was used to elevate the femur for broaching. A box osteotome and blunt tipped canal sound was then utilized to gain access to the femoral canal. We then sequentially broached the femur in appropriate anteversion until torsional stability was achieved and the implant was felt to have reached the appropriate size to allow trialing. The neck cut was brought flush to the trial broach with a calcar planar. A trial neck and head were then placed onto the broach and the hip was atraumatically reduced under direct visualization. External rotation to 90 was performed to assess stability. Fluoroscopy was brought in. An AP and lateral fluoroscopic image of the proximal femur was obtained to assess position and fill of the trial broach. An AP of the pelvis was then obtained and matched to the preoperative image taken. A bi-ischial bar was then placed and measurements were taken to assess changes in length and offset. The hip was then carefully dislocated, the proximal femur was exposed, and the trial implants were removed. The proximal femur was then prepared for cementing. The canal was thoroughly irrigated with pulsatile lavage to remove blood and marrow contents. A cement restrictor was placed to a depth just distal to the tip of the final implant. Epinephrine-soaked gauze was then packed into the proximal femur. 2 bags of cement with antibiotics were then mixed using a centrifuge and placed into a cement gun. Anesthesia was notified that cementing was about to commence to make sure the patient was appropriately ventilated and hydrated. Once the cement had reached appropriate consistency, the cement gun was used to fill the canal in a retrograde fashion starting at the restrictor. Cement was then pressurized into the canal with a blue tipped tung nut grower. The stem was then carefully introduced into the cement taking care to guide the implant into appropriate version. The stem was held in position until the cement had fully set. All extra cement was removed while the cement was hardening. The trunnion was cleansed and the final head was tapped into place to engage the Brown taper. The acetabulum was irrigated and visualized to be free of debris. The hip was carefully reduced. Stability was checked clinically with external rotation to 90 and there was no evidence of instability. Final fluoroscopic images were taken. The wound was then thoroughly irrigated and soaked with a dilute Betadine rinse for 3 minutes. 3 L of sterile saline was irrigated through the wound using pulsatile lavage. Local anesthetic cocktail was injected into the soft tissues around the surgical field. A deep drain was placed. The wound was then closed in layers. A sterile dressing was placed over the surgical incision and drain site. The drapes were taken down and the patient was carefully transferred off of the [place] table. Following removal of the boots the leg lengths felt acceptable. The patient was then taken to recovery room having tolerated the procedure well. Aicha Amaya PA-C was required as a skilled car rental sales assistant for patient positioning, surgical exposure, retraction, placement of implants, and closure of the surgical wound. PLAN: The patient can weight-bear as tolerated on the operative extremity. 2 doses of postoperative antibiotics. DVT prophylaxis with aspirin 81 mg twice a day based on preoperative risk stratification. Physical therapy for gait traini ng. Discontinue drain postoperative day #1 if output is less than 100 mL per shift.
--- NOTE | 2021-08-29 10:38 | XR ---
Right hip fluoroscopy. Intraoperative fluoroscopy of a right total hip replacement. 18 seconds of fluoroscopy was provided. 5 spot films were obtained. The final spot film demonstrates a total right hip prosthesis in near bry tomic alignment.
[2021-08-29] MEDS: MORPHINE SULFATE 4 MG/ML SYRINGE IV PRN ×3 (14:24→23:37)
[2021-08-29] MEDS: LEVOTHYROXINE 125 MCG TAB PO SCH (20:29)
[2021-08-29] MEDS: SENNOSIDES-DOCUSATE SODIUM 1 EACH TAB PO SCH (20:29)
[2021-08-29] MEDS: ESCITALOPRAM 10 MG TAB PO SCH (20:30)
[2021-08-29] MEDS: ASPIRIN 81 MG PO SCH (20:30)
[2021-08-30] MEDS: SODIUM CHLORIDE 0.9% 1,000 ML IV SCH ×5 (01:58→19:59)
[2021-08-30] MEDS: MORPHINE SULFATE 4 MG/ML SYRINGE IV PRN (04:41)
[2021-08-30] MEDS: ASPIRIN 81 MG PO SCH ×2 (08:45→19:31)
[2021-08-30] MEDS: ASCORBIC ACID 500 MG TAB PO SCH (08:45)
[2021-08-30] MEDS: traMADol 50 MG TAB PO PRN ×3 (08:45→23:45)
[2021-08-30] MEDS: CHOLECALCIFEROL 25 MCG (1000 IU) TABLET PO SCH (08:45)
[2021-08-30] MEDS: CALCIUM CARB-VIT D 500 MG-5 MCG TAB PO SCH (08:45)
--- NOTE | 2021-08-30 08:50 | P.PN ---
Subjective Progress Note Date: 08/30/21 This is a 80-year-old female who is status post right direct anterior hip hemiarthroplasty. This is postoperative day #1 and patient is seen and evaluated at bedside today. Family is present at bedside today and states that Oanh has been confused and pulled out her IV and Hemovac drain. Objective - Vital Signs Vital signs: Vital Signs Temp 98.2 F 08/30/21 07:36 Pulse 72 08/30/21 07:36 Resp 18 08/30/21 07:36 BP 103/67 08/30/21 07:36 Pulse Ox 97 08/30/21 07:36 Intake & Output 08/29/21 08/30/21 08/30/21 18:59 06:59 18:59 Intake Total 1391 Output Total 540 200 Balance 851 -200 Weight 60.1 kg Intake: IV 1101 Intake, IV Titration 290 Amount Sodium Chloride 0.9% 1, 240 000 ml @ 130 mls/hr IV . Q7H42M CIRO Rx#:[id number] cefTRIAXone 1 gm In 50 Sodium Chloride 0.9% 50 ml @ 100 mls/hr IVPB Q24HR CIRO Rx#:[id number] Output: Drainage 70 Right Medial Hip 70 Urine 420 200 Estimated Blood Loss 50 Other: Voiding Method Indwelling Catheter Indwelling Catheter - Exam Vital signs are stable. Patient is in no acute distress and is alert but confused. Calf is soft and nontender to palpation. Dressing is clean, dry, and intact. Patient has full foot and ankle motion without pain or difficulty. Sensation intact. Neurovascular status and circulatory status are intact. - Labs CBC & Chem 7: 08/28/21 04:30 08/28/21 04:30 Labs: Microbiology - Last 24 Hours (Table) 08/27/21 23:03 Urine Culture - Preliminary Urine,Catheterized Gram Neg Bacilli Assessment and Plan (1) S/P hip hemiarthroplasty Current Visit: Yes Status: Acute Code(s): Z96.649 - PRESENCE OF UNSPECIFIED ARTIFICIAL HIP JOINT SNOMED Code(s): 092540781 (2) Closed right hip fracture Current Visit: Yes Status: Acute Code(s): S72.001A - FRACTURE OF UNSP PART OF NECK OF RIGHT FEMUR, INIT SNOMED Code(s): 258394780 (3) Fall Current Visit: Yes Status: Acute Code(s): W19.XXXA - UNSPECIFIED FALL, INITIAL ENCOUNTER SNOMED Code(s): 3195346 Plan: Continue routine postop care and pain control. Continue anticoagulation with aspirin 81 mg twice a day. Weightbearing as tolerated with a walker. Leave dressing in place for 7 days. Appreciate input from medicine. Physical therapy today. Anticipate discharge in the next 24-48 hours.
[2021-08-30 09:42] LABS: Basophils # (A) 0.01 X 10*3/uL (0.00-0.10); Basophils % (A) 0.1 %; Eosinophils # (A) 0.03 X 10*3/uL (0.04-0.35); Eosinophils % (A) 0.4 %; HCT 29.9 % (37.2-46.3); HGB 9.4 g/dL (12.0-15.0); Immature Grans, Automated 0.5 %; Lymphocytes # (A) 0.66 X 10*3/uL (0.90-5.00); Lymphocytes % (A) 7.8 %; MCH 30.6 pg (27.0-32.0); MCHC 31.4 g/dL (32.0-37.0); MCV 97.4 fL (80.0-97.0); Mean Platelet Volume 10.6 fL (9.5-12.2); Monocytes # (A) 0.59 X 10*3/uL (0.20-1.00); NRBC Per 100 WBC 0 /100 WBCS (0.0-0.0); Neutrophils # (A) 7.15 X 10*3/uL (1.80-7.70); Neutrophils % (A) 84.2 %; Platelet Count 131 X 10*3/uL (140-440); RBC 3.07 X 10*6/uL (4.10-5.20); RDW 13.4 % (11.5-14.5); WBC 8.48 X 10*3/uL (4.50-10.00)
--- NOTE | 2021-08-30 10:06 | P.PN ---
Subjective Progress Note Date: 08/30/21 Hospital course: Patient is a very pleasant 80-year-old female with a past medical history of advanced dementia, hypothyroidism, and osteoporosis. She presented to the emergency department on 08/28/21 status post trip and fall. Patient was seen and fully evaluated in the emergency department. She was found to have an acute right femoral neck fracture with shortening and varus deformity along with moderate osteoarthrosis changes of the hips. Chest x-ray then completed revealing right upper lobe cavitary lesion. CBC and CMP completed unremarkable. Troponin negative at less than 0.012. Urinalysis contaminated, but concerning for infection with 28 WBCs. She was started on IV antibiotic Rocephin. Initial lactate was elevated at 2.7 with repeat of 1.0. Patient was admitted to orthopedic surgery team and we were consulted for medical clearance and continued medical management throughout patient's hospitalization. EKG was completed revealing normal sinus rhythm at 80 bpm. echocardiogram also completed revealing a preserved EF of 55-60% with no significant valvular abnormalities. Patient underwent right hip hemiarthroplasty on 08/29/[address] Villanueva. Physical exam: Patient seen and fully evaluated at bedside this morning. Patient's son and her were at bedside. Patient's condition stable. Patient currently denies having any complaints. RN reports patient had increased confusion overnight and ripped out IV. At this time oral medications to be administered an IV to be replaced. Vital signs reviewed and stable. General: Nontoxic, no distress and appears stated age. Thin and frail. Derm: Skin warm and dry, normal coloration for ethnicity. Dressing clean, dry, and intact to right lateral hip/thigh with no signs of bleeding or drainage from surgical site. Head: Atraumatic, normocephalic and symmetric. Eyes: EOMs intact, no lid lag, and anicteric sclera Mouth: no lip lesions, mucus membranes moist Cardiovascular: regular rate and rhythm with normal S1S2, no murmur, positive posterior tibial pulses bilaterally, and cap refill < 2 seconds. Lungs: Respirations even, regular, and unlabored on room air. Lungs CTA bilaterally, no rhonchi, no rales, no wheezing, and no accessory muscle usage. Abdominal: soft, nontender to palpation, no guarding, no appreciable organomegaly Ext:. No gross muscle atrophy, no edema, no contractures. Sensation and movement intact. Neuro: Speech clear, face symmetrical and CN II-XII grossly intact with no noted focal neuro deficits Psych: Alert and oriented to person only. Patient pleasantly confused but follows directions and reorients easily. Assessment and Plan of Care: Acute postoperative blood loss anemia, expected finding Status post right hip hemiarthroplasty on 08/29/21 secondary to acute traumatic right hip fracture -Management per primary admitting orthopedic surgery team including DVT prophylaxis, pain management, weightbearing, and PT/OT. -Patient currently on DVT prophylaxis with aspirin -Postoperative hemoglobin 9.4 down from previous 11.7. Expected postoperative finding. Continue to monitor with repeat hemoglobin tomorrow morning. E. coli UTI -Continue IV antibiotic Rocephin -Bladder management Right upper lobe lung cavitary lesion -Patient's son and at bedside reports this is a known finding and patient undergoes CT scans every 3 months in [place] to monitor/follow closely. They report last computed tomography scan less than 2 months ago and declined taking a repeat scan at this time. Advanced dementia -Continue to provide safe and supportive care and redirection as needed. Hypothyroidism -Continue daily medication regimen with levothyroxine 62.5 g daily Thank you for allowing us to participate in the care of this pleasant patient. Do not hesitate to contact us with questions. Someone can be reached from the [facility] hospitalist group all hours of the day at [phone] or via [employer]. I reviewed the documentation as provided by the TRACY above, who is the original author of this note. I agree with the documented assessment and plan, with the following changes: none Objective - Vital Signs Vital signs: Vital Signs Temp 98.2 F 08/30/21 07:36 Pulse 72 08/30/21 07:36 Resp 18 08/30/21 07:36 BP 103/67 08/30/21 07:36 Pulse Ox 97 08/30/21 07:36 Intake & Output 08/29/21 08/30/21 08/30/21 18:59 06:59 18:59 Intake Total 1391 Output Total 540 200 Balance 851 -200 Weight 60.1 kg Intake: IV 1101 Intake, IV Titration 290 Amount Sodium Chloride 0.9% 1, 240 000 ml @ 130 mls/hr IV . Q7H42M [facility] Rx#:[id number] cefTRIAXone 1 gm In 50 Sodium Chloride 0.9% 50 ml @ 100 mls/hr IVPB Q24HR [facility] Rx#:[id number] Output: Drainage 70 Right Medial Hip 70 Urine 420 200 Estimated Blood Loss 50 Other: Voiding Method Indwelling Catheter Indwelling Catheter - Labs CBC & Chem 7: 08/30/21 05:54 08/28/21 04:30 Labs: Microbiology - Last 24 Hours (Table) 08/27/21 23:03 Urine Culture - Preliminary Urine,Catheterized Gram Neg Bacilli
--- NOTE | 2021-08-30 10:11 | P.PN ---
Subjective Progress Note Date: 08/30/21 HISTORY OF PRESENT ILLNESS: The patient is an 80-year-old female patient with no significant cardiovascular history and no history of coronary artery disease or congestive heart failure or any cardiac arrhythmia and never seen by a senior dot net developer in the past. We requested to see the patient for a preoperative cardiac assessment before noncardiac surgery. The patient somewhat is a poor historian and the history was taken from her family who where her bedside. Apparently the patient fell at home and she landed on the right side in the morning. She developed right hip fracture and currently she is in process of having surgery. Orthopedic service is on the case. We consulted to see the patient mainly because of an EKG was performed and showed sinus rhythm with significant baseline artifact and possible diffuse nonspecific ST and T wave abnormalities. Apparently the israel dillard is very active physically and she has not been experiencing any symptoms of any chest pain or chest discomfort or any shortness of breath or dizziness or lightheadedness and no feeling of heart racing or fluttering or presyncope or syncope. According to her family she is able to go 2 flights of stairs without being symptomatic. No history of coronary artery disease. No history of heart failure nor history of cardiac arrhythmia. When she was seen this morning she is in process of having an echocardiogram for further risk stratification which we will follow-up on. Hemodynamically she remains a stable. When she was examined she was not having any unstable angina or any cardiac arrhythmia and she was not in any overt congestive heart failure. 08/30/2021 Patient examined this morning at the bedside. She is status post right tract anterior hip hemiarthroplasty. The patient is confused and has been pulling out her lines per nursing. She is unable to cooperate with exam this morning. Repeat EKG revealed sinus mechanism with no signs of acute ischemia. E chocardiogram completed revealing ejection fraction 55-60%, mild pulmonary hypertension, mild tricuspid regurgitation. Her vital signs are stable. PHYSICAL EXAM: VITAL SIGNS: Reviewed. GENERAL: Well-developed in no acute distress. NECK: Supple. No JVD or thyromegaly LUNGS: Respirations even and unlabored. Lungs essentially clear to auscultation bilaterally. HEART: Regular rate and rhythm. S1 and S2 heard. EXTREMITIES: Normal range of motion. No clubbing or cyanosis. Peripheral pulses intact. No lower extremity edema ASSESSMENT: Right hip fracture status post fall Thyroid disorder Dementia PLAN: Patient is currently stable from a cardiac standpoint. There are no further inpatient recommendations. We will sign off. Please reconsult if needed. Nurse practitioner note has been reviewed by physician. Signing provider agrees with the documented findings, assessment, and plan of care. Objective - Vital Signs Vital signs: Vital Signs Temp 98.2 F 08/30/21 07:36 Pulse 72 08/30/21 07:36 Resp 18 08/30/21 07:36 BP 103/67 08/30/21 07:36 Pulse Ox 97 08/30/21 07:36 Intake & Output 08/29/21 08/30/21 08/30/21 18:59 06:59 18:59 Intake Total 1391 Output Total 540 200 Balance 851 -200 Weight 60.1 kg Intake: IV 1101 Intake, IV Titration 290 Amount Sodium Chloride 0.9% 1, 240 000 ml @ 130 mls/hr IV . Q7H42M [facility] Rx#:[id number] cefTRIAXone 1 gm In 50 Sodium Chloride 0.9% 50 ml @ 100 mls/hr IVPB Q24HR [facility] Rx#:[id number] Output: Drainage 70 Right Medial Hip 70 Urine 420 200 Estimated Blood Loss 50 Other: Voiding Method Indwelling Catheter Indwelling Catheter - Labs CBC & Chem 7: 08/30/21 05:54 08/28/21 04:30 Labs: Abnormal Lab Results - Last 24 Hours (Table) 08/30/21 08/30/21 Range/Units 05:34 05:54 RBC 3.07 L (4.10-5.20) X 10*6/uL Hgb 9.4 L (12.0-15.0) g/dL Hct 29.9 L (37.2-46.3) % MCV 97.4 H (80.0-97.0) fL MCHC 31.4 L (32.0-37.0) g/dL Plt Count 131 L (140-440) X 10*3/uL Lymphocytes # 0.66 L (0.90-5.00) X 10*3/uL Eosinophils # 0.03 L (0.04-0.35) X 10*3/uL Vitamin D 25-Hydroxy 26.9 L (30.0-100.0) ng/mL Microbiology - Last 24 Hours (Table) 08/27/21 23:03 Urine Culture - Final Urine,Catheterized Escherichia coli
[2021-08-30] MEDS: PANTOPRAZOLE 40 MG/10 ML VIAL IV SCH (12:32)
[2021-08-30] MEDS: SENNOSIDES-DOCUSATE SODIUM 1 EACH TAB PO SCH (19:31)
[2021-08-30] MEDS: ESCITALOPRAM 10 MG TAB PO SCH (19:31)
[2021-08-30] MEDS: LEVOTHYROXINE 125 MCG TAB PO SCH (19:31)
[2021-08-31] MEDS: SODIUM CHLORIDE 0.9% 1,000 ML IV SCH ×2 (04:32→13:45)
[2021-08-31] MEDS: traMADol 50 MG TAB PO PRN ×3 (05:34→16:29)
[2021-08-31] MEDS: CALCIUM CARB-VIT D 500 MG-5 MCG TAB PO SCH (08:32)
[2021-08-31] MEDS: PANTOPRAZOLE 40 MG/10 ML VIAL IV SCH (08:32)
[2021-08-31] MEDS: CEPHALEXIN 500 MG CAP PO SCH ×3 (08:32→23:24)
[2021-08-31] MEDS: ASCORBIC ACID 500 MG TAB PO SCH (08:32)
[2021-08-31] MEDS: CHOLECALCIFEROL 25 MCG (1000 IU) TABLET PO SCH (08:33)
[2021-08-31] MEDS: ASPIRIN 81 MG PO SCH ×2 (08:33→23:24)
[2021-08-31 09:37] LABS: HCT 27.2 % (37.2-46.3); HGB 8.6 g/dL (12.0-15.0); MCH 30.3 pg (27.0-32.0); MCHC 31.6 g/dL (32.0-37.0); MCV 95.8 fL (80.0-97.0); NRBC Per 100 WBC 0 /100 WBCS (0.0-0.0); Platelet Count 129 X 10*3/uL (140-440); RBC 2.84 X 10*6/uL (4.10-5.20); RDW 13.5 % (11.5-14.5); WBC 6.26 X 10*3/uL (4.50-10.00)
[2021-08-31 09:45] LABS: African American GFR (CKD) 94.2 (60.0-200.0); Albumin/Globulin Ratio 1.5 (1.60-3.17); Anion Gap 4.7 mmol/L (10.00-18.00); BUN/Creat Ratio 19.86 Ratio (12.00-20.00); Blood Urea Nitrogen 13.9 mg/dL (9.0-27.0); Calcium 7.7 mg/dL (8.7-10.3); Carbon Dioxide 28.3 mmol/L (20.0-27.5); Magnesium 1.9 mg/dL (1.5-2.4); Non-African American GFR(CKD) 81.3 (60.0-200.0); Potassium 3.7 mmol/L (3.5-5.5); Total Bilirubin 1.1 mg/dL (0.30-1.20)
--- NOTE | 2021-08-31 10:28 | P.PN ---
Subjective Progress Note Date: 08/31/21 Hospital course: Patient is a very pleasant 80-year-old female with a past medical history of advanced dementia, hypothyroidism, and osteoporosis. She presented to the emergency department on 08/28/21 status post trip and fall. Patient was seen and fully evaluated in the emergency department. She was found to have an acute right femoral neck fracture with shortening and varus deformity along with moderate osteoarthrosis changes of the hips. Chest x-ray then completed revealing right upper lobe cavitary lesion. CBC and CMP completed unremarkable. Troponin negative at less than 0.012. Urinalysis contaminated, but concerning for infection with 28 WBCs. She was started on IV antibiotic Rocephin. Initial lactate was elevated at 2.7 with repeat of 1.0. Patient was admitted to orthopedic surgery team and we were consulted for medical clearance and continued medical management throughout patient's hospitalization. EKG was completed revealing normal sinus rhythm at 80 bpm. echocardiogram also completed revealing a preserved EF of 55-60% with no significant valvular abnormalities. Patient underwent right hip hemiarthroplasty on 08/29/[address] Villanueva. Physical exam: Patient seen and fully evaluated at bedside this morning. She appeared to be doing well. She remains at her baseline mentation alert and oriented to self only. Patient easily awoken upon verbal stimulation and reoriented at this time. Patient very pleasant and cooperative. She denies having any complaints at this time. Patient did not eat breakfast stating "I do not care for their cooking here." Patient denies having any pain or discomfort. Movement and sensation remains intact to all 4 extremities. IV antibiotic changed over to oral antibiotic, Keflex for treatment of E. coli UTI. Hemoglobin stable at 8.6. CBC revealing mild thrombocytopenia with platelet count of 129. Instructed RN to remove Elkins catheter and attempt voiding trial at this time. Vital signs reviewed and stable. General: Nontoxic, no distress and appears stated age. Thin and frail. Derm: Skin warm and dry, normal coloration for ethnicity. Dressing clean, dry, and intact to right lateral hip/thigh with no signs of bleeding or drainage from surgical site. Head: Atraumatic, normocephalic and symmetric. Very hard of hearing. Eyes: EOMs intact, no lid lag, and anicteric sclera Mouth: no lip lesions, mucus membranes moist Cardiovascular: regular rate and rhythm with normal S1S2, no murmur, positive posterior tibial pulses bilaterally, and cap refill < 2 seconds. Lungs: Respirations even, regular, and unlabored on room air. Lungs CTA bilaterally, no rhonchi, no rales, no wheezing, and no accessory muscle usage. Abdominal: soft, nontender to palpation, no guarding, no appreciable o rganomegaly Ext:. No gross muscle atrophy, no edema, no contractures. Sensation and movement intact. Neuro: Speech clear, face symmetrical and CN II-XII grossly intact with no noted focal neuro deficits Psych: Alert and oriented to person only. Patient pleasantly confused but follows directions and reorients easily. Assessment and Plan of Care: Acute postoperative blood loss anemia, expected finding and stable Status post right hip hemiarthroplasty on 08/29/21 secondary to acute traumatic right hip fracture -Management per primary admitting orthopedic surgery team including DVT prophylaxis, pain management, weightbearing, and PT/OT. -Patient currently on DVT prophylaxis with aspirin -Continue to monitor with repeat hemoglobin tomorrow morning. E. coli UTI -Patient pulled out IV, IV antibiotic Rocephin discontinued and patient placed on oral antibiotic Keflex for treatment of E. coli UTI. -Bladder management Vitamin D deficiency -Patient started on Os-Hayden 500+ Din addition to daily vitamin D supplement Right upper lobe lung cavitary lesion -Patient's son and at bedside reports this is a known finding and patient undergoes CT scans every 3 months in [place] to monitor/follow closely. They report last computed tomography scan less than 2 months ago and declined taking a repeat scan at this time. Advanced dementia -Continue to provide safe and supportive care and redirection as needed. Hypothyroidism -Continue daily medication regimen with levothyroxine 62.5 g daily Thank you for allowing us to participate in the care of this pleasant patient. Do not hesitate to contact us with questions. Someone can be reached from the [facility] [place] hospitalist group all hours of the day at [phone] or via [employer]. I reviewed the documentation as provided by the TRACY above, who is the original author of this note. I agree with the documented assessment and plan, with the following changes: none Objective - Vital Signs Vital signs: Vital Signs Temp 98.5 F 08/31/21 00:53 Pulse 78 08/31/21 00:53 Resp 18 08/31/21 00:53 BP 122/67 08/31/21 00:53 Pulse Ox 93 L 08/31/21 00:53 Intake & Output 08/30/21 08/31/21 08/31/21 18:59 06:59 18:59 Intake Total 800 Output Total 250 300 Balance 550 -300 Intake: Oral 800 Output: Urine 250 300 Other: Voiding Method Indwelling Catheter Indwelling Catheter - Labs CBC & Chem 7: 09/01/21 05:21 08/31/21 05:12 Labs: Abnormal Lab Results - Last 24 Hours (Table) 08/30/21 08/30/21 Range/Units 05:34 05:54 RBC 3.07 L (4.10-5.20) X 10*6/uL Hgb 9.4 L (12.0-15.0) g/dL Hct 29.9 L (37.2-46.3) % MCV 97.4 H (80.0-97.0) fL MCHC 31.4 L (32.0-37.0) g/dL Plt Count 131 L (140-440) X 10*3/uL Lymphocytes # 0.66 L (0.90-5.00) X 10*3/uL Eosinophils # 0.03 L (0.04-0.35) X 10*3/uL Vitamin D 25-Hydroxy 26.9 L (30.0-100.0) ng/mL Microbiology - Last 24 Hours (Table) 08/27/21 23:03 Urine Culture - Final Urine,Catheterized Escherichia coli
--- NOTE | 2021-08-31 13:06 | P.PN ---
Subjective Progress Note Date: 08/31/21 This is a 80-year-old female who is status post right direct anterior hip hemiarthroplasty. This is postoperative day #2 and patient is seen and evaluated at bedside today. Patient denies any new complaints today. Objective - Vital Signs Vital signs: Vital Signs Temp 98.8 F 08/31/21 08:00 Pulse 71 08/31/21 08:00 Resp 18 08/31/21 10:28 BP 130/67 08/31/21 08:00 Pulse Ox 93 L 08/31/21 10:28 Intake & Output 08/30/21 08/31/21 08/31/21 18:59 06:59 18:59 Intake Total 800 Output Total 250 300 200 Balance 550 -300 -200 Intake: Oral 800 Output: Urine 250 300 200 Uretheral (Elkins) 100 Other: Voiding Method Indwelling Catheter Indwelling Catheter - Exam Vital signs are stable. Patient is in no acute distress and is alert but confused. Calf is soft and nontender to palpation. Dressing is clean, dry, and intact. Patient has full foot and ankle motion without pain or difficulty. Sensation intact. Neurovascular status and circulatory status are intact. - Labs CBC & Chem 7: 08/31/21 05:12 08/31/21 05:12 Labs: Abnormal Lab Results - Last 24 Hours (Table) 08/31/21 08/31/21 Range/Units 05:12 05:12 RBC 2.84 L (4.10-5.20) X 10*6/uL Hgb 8.6 L (12.0-15.0) g/dL Hct 27.2 L (37.2-46.3) % MCHC 31.6 L (32.0-37.0) g/dL Plt Count 129 L (140-440) X 10*3/uL Carbon Dioxide 28.3 H (20.0-27.5) mmol/L Anion Gap 4.70 L (10.00-18.00) mmol/L Calcium 7.7 L (8.7-10.3) mg/dL Alkaline Phosphatase 38 L (41-126) U/L Total Protein 5.0 L (6.2-8.2) g/dL Albumin 3.0 L (3.8-4.9) g/dL Albumin/Globulin Ratio 1.50 L (1.60-3.17) g/dL Microbiology - Last 24 Hours (Table) 08/27/21 23:03 Urine Culture - Final Urine,Catheterized Escherichia coli Assessment and Plan (1) S/P hip hemiarthroplasty Current Visit: Yes Status: Acute Code(s): Z96.649 - PRESENCE OF UNSPECIFIED ARTIFICIAL HIP JOINT SNOMED Code(s): 788890749 (2) Closed right hip fracture Current Visit: Yes Status: Acute Code(s): S72.001A - FRACTURE OF UNSP PART OF NECK OF RIGHT FEMUR, INIT SNOMED Code(s): 225294531 (3) Fall Current Visit: Yes Status: Acute Code(s): W19.XXXA - UNSPECIFIED FALL, INITIAL ENCOUNTER SNOMED Code(s): 9428438 Plan: Continue routine postop care and pain control. Continue anticoagulation with aspirin 81 mg twice a day. Weightbearing as tolerated with a walker. Leave dressing in place for 7 days. Appreciate input from medicine. Physical therapy today. Anticipate discharge with home care in the next 24-48 hours.
[2021-08-31] MEDS: SENNOSIDES-DOCUSATE SODIUM 1 EACH TAB PO SCH (23:24)
[2021-08-31] MEDS: ESCITALOPRAM 10 MG TAB PO SCH (23:24)
[2021-08-31] MEDS: LEVOTHYROXINE 125 MCG TAB PO SCH (23:29)
[2021-09-01] MEDS: SODIUM CHLORIDE 0.9% 1,000 ML IV SCH (07:15)
--- NOTE | 2021-09-01 08:56 | P.PN ---
Subjective Progress Note Date: 09/01/21 Hospital course: Patient is a very pleasant 80-year-old female with a past medical history of advanced dementia, hypothyroidism, and osteoporosis. She presented to the emergency department on 08/28/21 status post trip and fall. Patient was seen and fully evaluated in the emergency department. She was found to have an acute right femoral neck fracture with shortening and varus deformity along with moderate osteoarthrosis changes of the hips. Chest x-ray then completed revealing right upper lobe cavitary lesion. CBC and CMP completed unremarkable. Troponin negative at less than 0.012. Urinalysis contaminated, but concerning for infection with 28 WBCs. She was started on IV antibiotic Rocephin. Initial lactate was elevated at 2.7 with repeat of 1.0. Patient was admitted to orthopedic surgery team and we were consulted for medical clearance and continued medical management throughout patient's hospitalization. EKG was completed revealing normal sinus rhythm at 80 bpm. echocardiogram also completed revealing a preserved EF of 55-60% with no significant valvular abnormalities. Patient underwent right hip hemiarthroplasty on 08/29/[address] Villanueva. Physical exam: Patient seen and fully evaluated at bedside this morning. She appeared to be doing well. She remains at her baseline mentation alert and oriented to self only . Continue to be easily reoriented and follows directions. Patient remains on 2 L O2 via nasal cannula. RN reports they attempted to wean patient from oxygen yesterday, however patient desaturated down into the 70s. Patient now 90-92% on 2 L O2 via nasal cannula. Order placed for home oxygen evaluation. Awaiting morning labs to result at this time. Patient otherwise appears stable at this time. Dressing to right lateral hip remains clean dry and intact. Sensation and movement to lower extremities also remains intact. Vital signs reviewed and stable. General: Nontoxic, no distress and appears stated age. Thin and frail. Derm: Skin warm and dry, normal coloration for ethnicity. Dressing clean, dry, and intact to right lateral hip/thigh with no signs of bleeding or drainage from surgical site. Head: Atraumatic, normocephalic and symmetric. Very hard of hearing. Eyes: EOMs intact, no lid lag, and anicteric sclera Mouth: no lip lesions, mucus membranes moist Cardiovascular: regular rate and rhythm with normal S1S2, no murmur, positive posterior tibial pulses bilaterally, and cap refill < 2 seconds. Lungs: Respirations even, regular, and unlabored on room air. Lungs CTA bilaterally, no rhonchi, no rales, no wheezing, and no accessory muscle usage. Abdominal: soft, nontender to palpation, no guarding, no appreciable organomegaly Ext:. No gross muscle atrophy, no edema, no contractures. Sensation and movement intact. Neuro: Speech clear, face symmetrical and CN II-XII grossly intact with no noted focal neuro deficits Psych: Alert and oriented to person only. Patient pleasantly confused but follows directions and reorients easily. Assessment and Plan of Care: Acute postoperative blood loss anemia, expected finding and stable Status post right hip hemiarthroplasty on 08/29/21 secondary to acute traumatic right hip fracture -Management per primary admitting orthopedic surgery team including DVT prophylaxis, pain management, weightbearing, and PT/OT. -Patient currently on DVT prophylaxis with aspirin -Continue to monitor with repeat hemoglobin. E. coli UTI -Patient pulled out IV, IV antibiotic Rocephin discontinued and patient placed on oral antibiotic Keflex for treatment of E. coli UTI. -Bladder management Vitamin D deficiency -Patient to continue Os-Hayden 500+ D in addition to daily vitamin D supplement Right upper lobe lung cavitary lesion -Patient's son and at bedside reports this is a known finding and patient undergoes CT scans every 3 months in [place] to monitor/follow closely. They report last computed tomography scan less than 2 months ago and declined taking a repeat scan at this time. Advanced dementia -Continue to provide safe and supportive care and redirection as needed. Hypothyroidism -Continue daily medication regimen with levothyroxine 62.5 g daily Thank you for allowing us to participate in the care of this pleasant patient. Do not hesitate to contact us with questions. Someone can be reached from the [facility] hospitalist group all hours of the day at [phone] or via [employer]. I reviewed the documentation as provided by the TRACY above, who is the original author of this note. I agree with the documented assessment and plan, with the following changes: none Objective - Vital Signs Vital signs: Vital Signs Temp 98.7 F 09/01/21 02:00 Pulse 85 09/01/21 02:00 Resp 18 08/31/21 20:00 BP 157/80 09/01/21 02:00 Pulse Ox 90 L 09/01/21 02:00 Intake & Output 08/31/21 09/01/21 09/01/21 18:59 06:59 18:59 Output Total 500 Balance -500 Output: Urine 500 Uretheral (Elkins) 100 Other: Voiding Method Bedpan # Voids 1 2 - Labs CBC & Chem 7: 09/01/21 05:21 08/31/21 05:12 Labs: Abnormal Lab Results - Last 24 Hours (Table) 08/31/21 08/31/21 Range/Units 05:12 05:12 RBC 2.84 L (4.10-5.20) X 10*6/uL Hgb 8.6 L (12.0-15.0) g/dL Hct 27.2 L (37.2-46.3) % MCHC 31.6 L (32.0-37.0) g/dL Plt Count 129 L (140-440) X 10*3/uL Carbon Dioxide 28.3 H (20.0-27.5) mmol/L Anion Gap 4.70 L (10.00-18.00) mmol/L Calcium 7.7 L (8.7-10.3) mg/dL Alkaline Phosphatase 38 L (41-126) U/L Total Protein 5.0 L (6.2-8.2) g/dL Albumin 3.0 L (3.8-4.9) g/dL Albumin/Globulin Ratio 1.50 L (1.60-3.17) g/dL
[2021-09-01 09:00] LABS: Basophils # (A) 0.03 X 10*3/uL (0.00-0.10); Basophils % (A) 0.5 %; Eosinophils # (A) 0.21 X 10*3/uL (0.04-0.35); Eosinophils % (A) 3.2 %; HCT 27.9 % (37.2-46.3); HGB 9.1 g/dL (12.0-15.0); Immature Grans, Automated 0.6 %; Lymphocytes # (A) 0.68 X 10*3/uL (0.90-5.00); Lymphocytes % (A) 10.4 %; MCH 30.4 pg (27.0-32.0); MCHC 32.6 g/dL (32.0-37.0); MCV 93.3 fL (80.0-97.0); Mean Platelet Volume 10.7 fL (9.5-12.2); Monocytes # (A) 0.56 X 10*3/uL (0.20-1.00); Monocytes % (A) 8.5 %; NRBC Per 100 WBC 0 /100 WBCS (0.0-0.0); Neutrophils # (A) 5.04 X 10*3/uL (1.80-7.70); Neutrophils % (A) 76.8 %; Platelet Count 133 X 10*3/uL (140-440); RBC 2.99 X 10*6/uL (4.10-5.20); RDW 13.3 % (11.5-14.5); WBC 6.56 X 10*3/uL (4.50-10.00)
[2021-09-01 09:28] VITALS: BP 120/68; PULSE 69; RESP 16; TEMP 98.8
[2021-09-01] MEDS: CALCIUM CARB-VIT D 500 MG-5 MCG TAB PO SCH (09:49)
[2021-09-01] MEDS: CHOLECALCIFEROL 25 MCG (1000 IU) TABLET PO SCH (09:49)
[2021-09-01] MEDS: ASCORBIC ACID 500 MG TAB PO SCH (09:49)
[2021-09-01] MEDS: CEPHALEXIN 500 MG CAP PO SCH ×2 (09:49→15:01)
[2021-09-01] MEDS: ASPIRIN 81 MG PO SCH (09:49)
[2021-09-01] MEDS: PANTOPRAZOLE 40 MG/10 ML VIAL IV SCH (10:12)
--- NOTE | 2021-09-01 10:14 | P.DS ---
Providers Date of admission: 08/27/21 22:24 Expected date of discharge: 09/01/21 Attending physician: Yuriy Villanueva Consults: 08/27/21 22:25 Consult Physician Routine Consulting Provider: Celeste Cheema Consult Reason/Comments: [employer] Do you want consulting provider notified?: Yes Primary care physician: Physician Nonstaff Hospital Course: This is an 80-year-old female who is admitted to [facility] on 08/27/21 after a ground-level fall and sustaining injury to the right hip. X-rays in the emergency department revealed a right femoral neck fracture. She is admitted to our service for surgical intervention and care. Patient was taken to surgery for direct anterior right hip hemiarthroplasty on 08/29/[address] Villanueva. The procedure was performed without complication or sequelae. The patient is doing fairly well postoperatively. Vital signs and labs are stable on postoperative day #3. Patient was examined bedside today with Dr. Villanueva. Patient states she is doing well, per nursing patient is doing well. Per physical therapy she is a moderate assist. No new complaints or concerns on the day of discharge. On examination, the patient is lying in bed in no apparent distress. She is alert although confused, she answers questions appropriately. On inspection of the right hip, there is a clean, dry, intact Opsite dressing intact. Right lower extremity is warm and well perfused. Calf is soft and non-tender. Patient is discharged home with home healthy care today under the care of her family in good condition, pending medical clearance. Patient will follow-up with Dr. Villanueva in the office in 2 weeks. Please see med rec for accurate list of discharge medication. Patient Condition at Discharge: Good Plan - Discharge Summary New Discharge Prescriptions: New Cephalexin [Keflex] 500 mg PO TID 5 Days #15 cap Aspirin 81 mg PO BID 30 Days #60 tab traMADol HCL [Ultram] 50 mg PO Q6H 7 Days #20 tab Continue Levothyroxine Sodium [Synthroid] 62.5 mcg PO HS Escitalopram Unknown Dose 1 tab PO HS Cholecalciferol [Vitamin D3 (25 Mcg = 1000 Iu)] 25 mcg PO DAILY Ascorbic Acid [Vitamin C] 500 mg PO DAILY Calcium Carbonate [Calcium] 600 mg PO DAILY Discharge Medication List Ascorbic Acid [Vitamin C] 500 mg PO DAILY 08/27/21 [History] Calcium Carbonate [Calcium] 600 mg PO DAILY 08/27/21 [History] Cholecalciferol [Vitamin D3 (25 Mcg = 1000 Iu)] 25 mcg PO DAILY 08/27/21 [Hi story] Escitalopram Unknown Dose 1 tab PO HS 08/27/21 [History] Levothyroxine Sodium [Synthroid] 62.5 mcg PO HS 08/27/21 [History] Cephalexin [Keflex] 500 mg PO TID 5 Days #15 cap 08/31/21 [Rx] Aspirin 81 mg PO BID 30 Days #60 tab 09/01/21 [Rx] traMADol HCL [Ultram] 50 mg PO Q6H 7 Days #20 tab 09/01/21 [Rx] Follow up Appointment(s)/Referral(s): [facility], [NON-STAFF] - As Needed Nonstaff,Physician [Primary Care Provider] - 1-2 days Yuriy Villanueva MD [Medical Doctor] - 2 Weeks Activity/Diet/Wound Care/Special Instructions: Activity: Weightbearing as tolerated with a walker. Must use walker at all times. Take breaks as needed. Diet: Heart healthy and carb consistent diet. Avoid salts, or foods with hidden salts such as canned or boxed foods and frozen dinners. Extra salt makes your heart work harder and traps the fluid in your body for longer. Special Instructions: Take all of your medications as directed and remember to keep all of your doctor's appointments and follow-up as needed. Thank you for allowing us to participate in your care, it was truly a pleasure having you for our patient!!! Weight bear as tolerated on operative leg with walker. Keep operative dressing intact until follow-up appointment. Take pain medications as prescribed as needed. Take aspirin 81mg BID x 4 weeks for blood clot prevention. Follow-up in the office with Dr. Villanueva in two weeks. Call the office with any questions or concerns, Discharge Disposition: HOME WITH HOME HEALTH SERVICES
[2021-09-01] MEDS: traMADol 50 MG TAB PO PRN (12:52)
== END 2021-09-01 17:00 | disposition home health service (06) | DRG 522 ==
LOC: EC 21:14 → 4SSUR 22:24
PROVIDERS: ADMIT Orthopaedic Surgery; ATTEND Orthopaedic Surgery
PROC: 0SRR019 Replacement of Right Hip Joint, Femoral Surface with Metal Synthetic Substitute, Cemented, Open Approach (ICD-10-PCS; principal; 2021-08-29 08:00)
DX: S72.011A Unspecified intracapsular fracture of right femur, initial encounter for closed fracture (principal); E87.2 Acidosis; D62 Acute posthemorrhagic anemia; N39.0 Urinary tract infection, site not specified; E87.1 Hypo-osmolality and hyponatremia; I27.20 Pulmonary hypertension, unspecified; E86.0 Dehydration; D69.6 Thrombocytopenia, unspecified; G30.9 Alzheimer's disease, unspecified; F02.80 Dementia in other diseases classified elsewhere, unspecified severity, without behavioral disturbance, psychotic disturbance, mood disturbance, and anxiety; B96.20 Unspecified Escherichia coli [E. coli] as the cause of diseases classified elsewhere; E03.9 Hypothyroidism, unspecified; J98.4 Other disorders of lung; M16.0 Bilateral primary osteoarthritis of hip; M81.0 Age-related osteoporosis without current pathological fracture; E55.9 Vitamin D deficiency, unspecified; I07.1 Rheumatic tricuspid insufficiency; H91.90 Unspecified hearing loss, unspecified ear; F32.A Depression, unspecified; Z79.890 Hormone replacement therapy; Z79.899 Other long term (current) drug therapy; Z90.89 Acquired absence of other organs; Z98.890 Other specified postprocedural states; W01.0XXA Fall on same level from slipping, tripping and stumbling without subsequent striking against object, initial encounter; Y92.009 Unspecified place in unspecified non-institutional (private) residence as the place of occurrence of the external cause
CPT/HCPCS: 36415; 71045; 73501; 73502; 80053; 81001; 82306; 83605; 83735; 84100; 84484; 85025; 85027; 85610; 85730; 87077; 87086; 87186; 88305; 88311; 93005; 93306; 94760; 96361; 96374; 99285